=== PATIENT | male | born 1990 | race Caucasian/White ===

== ENCOUNTER 2017-06-01 02:28 | Emergency (ER) | payer OTHER ==
[~2017-06-01] VITALS: Ht 185.4 cm; Wt 95.3 kg
[~2017-06-01 02:28] MED LIST: ALPRAZOLAM 0.50.5 MG PO; CLONAZEPAM 1 MG1 M1; FLEXERIL PO; HYDROCODON-ACE1 EAC7 PO; HYDROCODONE-APA1 TA1; IBUPROFEN 800800 M1 PO; NOHOMEMEDICATIONS; PAROXETINE HCL10 MG PO; PERCOCET 5-3251 EACH PO; PHENERGAN 25 MG25 M1 PO; ROBAXIN500 MG PO; TORADOL 10 MG T10 MG PO; TRIPLE ANTIBIOT30 G2 TP; VICOPROFEN 2001 EACH; VISTARIL 25 MG25 M1; XANAX 0.5 MG0.5 MG PO; XANAX1 MG; ZOFRAN4 MG PO
[2017-06-01] MEDS ORDERED: CLONAZEPAM 1 MG1 M1 (02:33)
[2017-06-01] MEDS ORDERED: KLONOPIN1 MG PO (03:41)
[2017-06-01 04:21] VITALS: BP 125/86
== END 2017-06-01 04:21 | disposition home or self-care (01) ==
LOC: M.ERS 02:28
DX: F41.9 Anxiety disorder, unspecified (principal); Z91.14 Patient's other noncompliance with medication regimen; F10.99 Alcohol use, unspecified with unspecified alcohol-induced disorder; Z98.890 Other specified postprocedural states; Z88.5 Allergy status to narcotic agent

== ENCOUNTER 2017-06-04 03:46 | Emergency (ER) | payer OTHER ==
[~2017-06-04] VITALS: Ht 185.4 cm; Wt 95.3 kg
[~2017-06-04 03:46] MED LIST changes: +KLONOPIN1 MG PO
[2017-06-04 04:59] LABS: ABSOLUTE BASOPHILS 0.1 thou/uL (0.0-0.2); ABSOLUTE EOSINOPHILS 0.3 thou/uL (0.0-0.7); ABSOLUTE LYMPHOCYTES 2.4 thou/uL (0.8-5.3); ABSOLUTE MONOCYTES 0.8 thou/uL (0.0-1.2); ABSOLUTE NEUTROPHILS 5.7 thou/uL (1.6-8.1); HEMATOCRIT 45.7 % (42.0-52.0); HEMOGLOBIN 15.5 gm/dL (14.0-18.0); LYMPHOCYTES 26.1 %; MCH 29.8 pg (26.0-34.0); MCV 87.6 fL (80.0-100.0); MONOCYTES 9.1 %; MPV 8.3 fl. (7.2-11.1); NUCLEATED RBCS 0 /100WBC; PLATELET COUNT* 257 thou/uL (150-400); POLYS 60.8 %; RBC 5.22 mil/uL (4.50-6.00); RDW-CV 13.5 % (10.5-14.5); WBC 9.4 thou/uL (4.0-11.0)
[2017-06-04 05:11] LABS: CALCIUM 9.2 mg/dL (8.5-10.1); POTASSIUM 4.3 mmol/L (3.5-5.1)
[2017-06-04 05:15] LABS: TOTAL BILIRUBIN 0.3 mg/dL (<0.1-1.0)
[2017-06-04] MEDS ORDERED: AMOXICILLIN875 MG PO (05:41)
[2017-06-04] MEDS ORDERED: HYDROCODON-ACE1 EAC8 PO (05:41)
[2017-06-04 05:55] VITALS: BP 131/80
== END 2017-06-04 06:00 | disposition home or self-care (01) ==
LOC: M.ERS 03:46
PROVIDERS: Emergency Medicine
DX: J01.40 Acute pansinusitis, unspecified (principal); F41.9 Anxiety disorder, unspecified; F10.99 Alcohol use, unspecified with unspecified alcohol-induced disorder

== ENCOUNTER 2017-08-26 21:45 | Emergency (ER) | payer OTHER ==
[~2017-08-26] VITALS: Ht 185.4 cm; Wt 97.5 kg
[~2017-08-26 21:45] MED LIST changes: +AMOXICILLIN875 MG PO; +HYDROCODON-ACE1 EAC8 PO
[2017-08-26] MEDS ORDERED: FIORINAL 50-321 EACH PO (23:46)
[2017-08-26 23:54] VITALS: BP 119/71
== END 2017-08-26 23:55 | disposition home or self-care (01) ==
LOC: M.ERS 21:45
DX: R51 Headache (principal); F41.9 Anxiety disorder, unspecified; Z88.6 Allergy status to analgesic agent

== ENCOUNTER 2020-01-18 11:54 | Emergency (ER) | payer OTHER ==
[~2020-01-18] VITALS: Ht 185.4 cm; Wt 97.5 kg
[~2020-01-18 11:54] MED LIST changes: +FIORINAL 50-321 EACH PO
[2020-01-18] MEDS ORDERED: CLONAZEPAM 0.50.5 M1 PO (12:07)
[2020-01-18] MEDS ORDERED: CLONAZEPAM 1 MG1 M1 PO (12:35)
[2020-01-18 12:47] VITALS: BP 126/84
== END 2020-01-18 12:48 | disposition home or self-care (01) ==
LOC: M.ERS 11:54
DX: F41.9 Anxiety disorder, unspecified (principal); Z76.0 Encounter for issue of repeat prescription; Z88.6 Allergy status to analgesic agent; Z98.890 Other specified postprocedural states

== ENCOUNTER 2020-01-27 20:42 | Emergency (ER) | payer OTHER ==
[~2020-01-27] VITALS: Ht 185.4 cm; Wt 97.5 kg
[~2020-01-27 20:42] MED LIST changes: +CLONAZEPAM 0.50.5 M1 PO; +CLONAZEPAM 1 MG1 M1 PO
[2020-01-27 20:50] VITALS: BP 119/78
--- NOTE | 2020-01-28 10:18 | EKG ---
[place] [address] ELECTROCARDIOGRAM REPORT Name: RYDER HUBER Room: 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
== END 2020-01-27 21:10 | disposition home or self-care (01) ==
LOC: M.ERS 20:42
DX: F41.0 Panic disorder [episodic paroxysmal anxiety] (principal); Z88.6 Allergy status to analgesic agent

== ENCOUNTER 2020-03-14 10:36 | Emergency (ER) | payer OTHER ==
[~2020-03-14] VITALS: Ht 185.4 cm; Wt 97.5 kg
[2020-03-14 11:00] LABS: ABSOLUTE BASOPHILS 0.1 thou/uL (0.0-0.2); ABSOLUTE EOSINOPHILS 0.3 thou/uL (0.0-0.7); ABSOLUTE LYMPHOCYTES 2.5 thou/uL (0.8-5.3); ABSOLUTE MONOCYTES 0.7 thou/uL (0.0-1.2); ABSOLUTE NEUTROPHILS 4.7 thou/uL (1.6-8.1); BASOPHILS 0.8 %; EOSINOPHILS 3.5 %; HEMATOCRIT 50.3 % (42.0-52.0); HEMOGLOBIN 16.9 gm/dL (14.0-18.0); LYMPHOCYTES 30.6 %; MCH 29.2 pg (26.0-34.0); MCHC 33.7 g/dL (28.0-37.0); MCV 86.8 fL (80.0-100.0); MONOCYTES 7.9 %; MPV 8.3 fl. (7.2-11.1); NUCLEATED RBCS 0 /100WBC; PLATELET COUNT* 266 thou/uL (150-400); POLYS 57.2 %; RBC 5.79 mil/uL (4.50-6.00); RDW-CV 13.9 % (10.5-14.5); WBC 8.3 thou/uL (4.0-11.0)
[2020-03-14] MEDS ORDERED: PREDNISONE 10 M10 M1 PO (11:05)
[2020-03-14] MEDS ORDERED: ACYCLOVIR 800800 MG PO (11:05)
[2020-03-14 11:08] LABS: CALCIUM 9.2 mg/dL (8.5-10.1); CREATININE 1.1 mg/dL (0.6-1.3)
[2020-03-14 11:21] LABS: ALBUMIN 4.3 g/dL (3.4-5.0); TOTAL BILIRUBIN 0.6 mg/dL (<0.1-1.0); TOTAL PROTEIN 8.1 g/dL (6.4-8.2)
[2020-03-14 12:16] VITALS: BP 128/82
--- NOTE | 2020-03-14 17:12 | EKG ---
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1990 Requested By: Mohinder Lay Order Number: [id number] MD: Bonilla Guido Measurements Intervals [place] Rate: 72 P: 39 OR: 133 QRS: 20 QRSD: 95 T: 43 QT: 394 QTc: 432 Interpretive Statements Sinus rhythm Baseline wander in lead(s) I,III,aVR,aVL Compared to ECG 01/27/2020 20:48:39 Ventricular premature complex(es) now present T-wave abnormality no longer present Electronically Signed On 03-14-2020 17:12:31 CDT by Bonilla Guido [email or web address] <ELECTRONICALLY SIGNED> By: Nikolas Guido MD, FACC 03/14/20 1712 41 104 Nikolas Guido MD, FAC /EPI
== END 2020-03-14 12:18 | disposition home or self-care (01) ==
LOC: M.ERS 10:36
PROVIDERS: Emergency Medicine Emergency Medical Services
DX: G51.0 Bell's palsy (principal); Z88.6 Allergy status to analgesic agent

== ENCOUNTER 2020-07-10 22:55 | Emergency (ER) | payer OTHER ==
[~2020-07-10] VITALS: Ht 185.4 cm; Wt 102.1 kg
[~2020-07-10 22:55] MED LIST changes: +ACYCLOVIR 800800 MG PO; +PREDNISONE 10 M10 M1 PO
[2020-07-10 23:16] LABS: ABSOLUTE BASOPHILS 0.1 thou/uL (0.0-0.2); ABSOLUTE EOSINOPHILS 0.4 thou/uL (0.0-0.7); ABSOLUTE LYMPHOCYTES 4.2 thou/uL (0.8-5.3); ABSOLUTE MONOCYTES 0.9 thou/uL (0.0-1.2); ABSOLUTE NEUTROPHILS 6.5 thou/uL (1.6-8.1); BASOPHILS 1.1 %; EOSINOPHILS 3.1 %; HEMATOCRIT 47.2 % (42.0-52.0); LYMPHOCYTES 34.8 %; MCH 29.2 pg (26.0-34.0); MCHC 33.8 g/dL (28.0-37.0); MCV 86.4 fL (80.0-100.0); MONOCYTES 7.5 %; MPV 8.6 fl. (7.2-11.1); NUCLEATED RBCS 0 /100WBC; PLATELET COUNT* 263 thou/uL (150-400); POLYS 53.5 %; RBC 5.46 mil/uL (4.50-6.00); RDW-CV 13.2 % (10.5-14.5); WBC 12.2 thou/uL (4.0-11.0)
[2020-07-10 23:23] LABS: INR 0.9; PROTIME 10.1 Seconds (9.20-11.50)
[2020-07-10 23:39] LABS: CALCIUM 9.8 mg/dL (8.5-10.1); CREATININE 1.1 mg/dL (0.6-1.3); POTASSIUM 3.5 mmol/L (3.5-5.1)
[2020-07-10 23:50] LABS: ALBUMIN 4.3 g/dL (3.4-5.0); MAGNESIUM 1.9 mg/dL (1.8-2.4); TOTAL BILIRUBIN 0.2 mg/dL (<0.1-1.0); TOTAL PROTEIN 7.5 g/dL (6.4-8.2)
[2020-07-11 01:29] VITALS: BP 115/70
--- NOTE | 2020-07-11 10:43 | EKG ---
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
== END 2020-07-11 01:29 | disposition home or self-care (01) ==
LOC: M.ERS 22:55
PROVIDERS: Emergency Medicine
DX: F41.9 Anxiety disorder, unspecified (principal); Z88.6 Allergy status to analgesic agent